=== PATIENT | male | born 1990 | race Caucasian/White ===

== ENCOUNTER 2016-12-14 03:53 | Emergency (ER) | payer MEDICAID ==
[~2016-12-14 03:53] MED LIST: SULF-154 PO
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
[2016-12-14 04:13] VITALS: BP 116/62; PULSE 62; RESP 16; TEMP 98.3; O2SAT 98
[2016-12-14 04:48] LABS: AMPHETAMINE, URINE NEG (NEG); BARBITURATES, URINE NEG (NEG); COCAINE, URINE POS (NEG)
[2016-12-14 04:50] LABS: ANION GAP 10 MEQ/L (5-15); AUTOMATED NEUTROPHIL # 8.4 TH/MM3 (1.8-7.7); BASOPHIL # 0.1 TH/MM3 (0-0.2); BASOPHIL % 0.5 % (0.0-2.0); EOSINOPHIL % 0.2 % (0.0-4.0); HEMATOCRIT 46.6 % (39.0-51.0); HEMO FLAGS DIFF FINAL; LYMPH % 16.5 % (9.0-44.0); LYMPHOCYTE # 1.9 TH/MM3 (1.0-4.8); MEAN CELL VOLUME 96.1 FL (80.0-100.0); MEAN CORPUSCULAR HEMOGLOBIN 33.3 PG (27.0-34.0); MEAN CORPUSCULAR HGB CONC 34.7 % (32.0-36.0); MONO % 9.5 % (0.0-8.0); NEUT % 73.3 % (16.0-70.0); PLATELET COUNT 255 TH/MM3 (150-450); RED BLOOD COUNT 4.85 MIL/MM3 (4.50-5.90); RED CELL DISTRIBUTION WIDTH 12.4 % (11.6-17.2); WHITE BLOOD COUNT 11.4 TH/MM3 (4.0-11.0)
[2016-12-14 04:52] LABS: ACETAMINOPHEN LESS THAN 2.0 MCG/ML (10.0-30.0); ALKALINE PHOSPHATASE 70 U/L (45-117); ALT (GPT) 21 U/L (12-78); AST (GOT) 20 U/L (15-37); BICARBONATE 24.7 MEQ/L (21.0-32.0); BLOOD UREA NITROGEN 17 MG/DL (7-18); CHLORIDE 102 MEQ/L (98-107); GLOMERULAR FILTRATION RATE 77 ML/MIN (>89); POTASSIUM 3.6 MEQ/L (3.5-5.1); SODIUM (NA) 137 MEQ/L (136-145); TOTAL BILIRUBIN ADULT 1.1 MG/DL (0.2-1.0)
[2016-12-14 13:45] VITALS: BP 114/78; PULSE 88; RESP 18; TEMP 98.8; O2SAT 97
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
== END 2016-12-14 18:40 | disposition home or self-care (01) ==
LOC: NEPA 03:53 → NEPJ 18:40
DX: F14.10 Cocaine abuse, uncomplicated (principal)
CPT/HCPCS: 80053; 80307; 85025; 99284

== ENCOUNTER 2017-03-01 04:09 | Emergency (ER) | payer MEDICAID, OTHER ==
[~2017-03-01] VITALS: Ht 185.4 cm; Wt 65.9 kg
[2017-03-01 04:19] VITALS: BP 121/70; PULSE 100; RESP 16; TEMP 98.2; O2SAT 95
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
[2017-03-01 05:17] LABS: BASOPHIL # 0.1 TH/MM3 (0-0.2); EOSINOPHIL # 0.1 TH/MM3 (0-0.4); EOSINOPHIL % 1.1 % (0.0-4.0); HEMATOCRIT 42.9 % (39.0-51.0); HEMO FLAGS DIFF FINAL; LYMPH % 17.6 % (9.0-44.0); LYMPHOCYTE # 1.7 TH/MM3 (1.0-4.8); MEAN CELL VOLUME 96.2 FL (80.0-100.0); MEAN CORPUSCULAR HEMOGLOBIN 33.6 PG (27.0-34.0); MEAN CORPUSCULAR HGB CONC 34.9 % (32.0-36.0); MONO % 8.3 % (0.0-8.0); PLATELET COUNT 253 TH/MM3 (150-450); RED BLOOD COUNT 4.45 MIL/MM3 (4.50-5.90); RED CELL DISTRIBUTION WIDTH 13.3 % (11.6-17.2); WHITE BLOOD COUNT 9.7 TH/MM3 (4.0-11.0)
[2017-03-01 05:37] LABS: ALT (GPT) 21 U/L (12-78); ANION GAP 10 MEQ/L (5-15); AST (GOT) 17 U/L (15-37); BICARBONATE 26.2 MEQ/L (21.0-32.0); BLOOD UREA NITROGEN 16 MG/DL (7-18); CHLORIDE 104 MEQ/L (98-107); GLOMERULAR FILTRATION RATE 93 ML/MIN (>89); POTASSIUM 3.5 MEQ/L (3.5-5.1); SODIUM (NA) 140 MEQ/L (136-145)
[2017-03-01 05:40] LABS: ACETAMINOPHEN LESS THAN 2.0 MCG/ML (10.0-30.0); ALKALINE PHOSPHATASE 80 U/L (45-117); TOTAL BILIRUBIN ADULT 0.6 MG/DL (0.2-1.0)
[2017-03-01 05:45] LABS: AMPHETAMINE, URINE NEG (NEG); BARBITURATES, URINE NEG (NEG); COCAINE, URINE POS (NEG)
[2017-03-01 07:03] VITALS: BP 106/48; PULSE 55; RESP 18; O2SAT 96
[2017-03-01 10:00] VITALS: BP 100/61; PULSE 75; RESP 18; TEMP 97.8; O2SAT 97
[2017-03-01 10:25] VITALS: BP 101/60
[2017-03-01 21:34] VITALS: RESP 17
[2017-03-02 02:00] VITALS: BP 109/70; PULSE 70; RESP 18
[2017-03-02] MEDS ORDERED: NAPROXEN 500 MG TAB PO ONE (03:45)
== END 2017-03-02 03:30 ==
LOC: NEPD 04:09 → NEPJ 03-02 03:30
DX: F19.10 Other psychoactive substance abuse, uncomplicated (principal); F43.21 Adjustment disorder with depressed mood; Z59.0 Homelessness; F43.10 Post-traumatic stress disorder, unspecified; F17.200 Nicotine dependence, unspecified, uncomplicated; F14.10 Cocaine abuse, uncomplicated
CPT/HCPCS: 80053; 80307; 85025; 99285

== ENCOUNTER 2017-07-23 10:02 | Emergency (ER) | payer MEDICAID ==
[~2017-07-23] VITALS: Ht 185.4 cm; Wt 68.0 kg
[2017-07-23 10:04] VITALS: BP 124/66; PULSE 95; RESP 14; TEMP 98; O2SAT 98
--- NOTE | 2017-07-23 10:36 | PD ---
HPI . Left hand injury Chief Complaint: Injury Time Seen by Provider: 10:09 Travel History International Travel<30 days: No Contact w/Intl Traveler<30days: No Traveled to known affect area: No History of Present Illness HPI 26-year-old male patient resents emergency department for evaluation of left hand injury that was sustained last Thursday when he punched a telephone pole. Patient states the fourth and fifth knuckle on his left fist had open wounds from the initial blow to the telephone pole. 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 The grout is stuck into the wound and he has been unable to remove it. At this time the fourth and fifth knuckle is edematous and erythematous. Patient has full extension with the fingers of his left hand but has limited motion with flexion and making a fist of the left hand. Left hand is neurovascularly intact. Cap refill on the fourth and fifth digit is less than 3 seconds. He denies any major medical history. Patient states he is up-to-date on his tetanus. He denies any fevers, chills, chest pain, shortness breath, malaise, abdominal pain, nausea, vomiting, diarrhea. PFSH Past Medical History AAA: No ADD: No ADHD: No Alzheimer's Disease: No Anemia: No Arthritis: No Asthma: No Atrial Fibrillation: No Autoimmune Disease: No Blood Disorders: No Bipolar Disorder: No Anxiety: Yes Depression: Yes Heart Rhythm Problems: No Cancer: No Cardiac Catheterization: No Cardiomyopathy: No Cardiovascular Problems: No Cerebral Palsy: No High Cholesterol: No Chemotherapy: No Chest Pain: No Congestive Heart Failure: No Cirrhosis: No COPD: No Cerebrovascular Accident: No Coronary Artery Disease: No Cystic Fibrosis: No Dementia: No Developmental Delay: No Diabetes: No Dialysis: No Diminished Hearing: No Diverticulitis: No Deep Vein Thrombosis: No Endocrine: No Fibromyalgia: No Gastrointestinal Disorders: No Genetic Disorder: No GERD: No Glaucoma: No (Family history) Gout: No Genitourinary: No Headaches: No Hepatitis: No Hiatal Hernia: No Heparin Induced Thrombocytopen: No Herniated Disk: No Hypertension: No Immune Disorder: No Inguinal Hernia: No Implanted Vascular Access Dvce: No Insomnia: No Kidney Stones: Yes (2009 x2 stones) Musculoskeletal: No Neurologic: No Parkinson's Disease: No Psychiatric: Yes (PTSD) Reproductive: No Respiratory: No Resp. Syncytial Virus (RSV): No Integumentary: No Immunizations Current: No Migraines: No Myocardial Infarction: No Pancreatitis: No Pneumonia: No Radiation Therapy: No Renal Failure: No Schizophrenia: No Seizures: No Shingles: No Sickle Cell Disease: No Sleep Apnea: No Thyroid Disease: No Triglycerides - High: No Ulcer: No Tetanus Vaccination: < 5 Years PNEUMOCCOCAL Vaccine (Year): 2 Past Surgical History Abdominal Aneurysm Repair: No Abdominal Surgery: No AICD: No Appendectomy: No Arteriovenous Shunt: No Cardiac Surgery: No Cholecystectomy: No Coronary Artery Bypass Graft: No Coronary Stent: No Ear Surgery: No Endocrine Surgery: No Eye Surgery: No Genitourinary Surgery: No Gynecologic Surgery: No Insulin Pump: No Joint Replacement: No Mastectomy: No Neurologic Surgery: No Oral Surgery: No Pacemaker: No Prostatectomy: No Thoracic Surgery: No Tonsillectomy: No Tympanostomy Tube: No Valve Replacement: No Other Surgery: Yes (Micro-tendon on right 4th finger) Family History Family Hypercholesterolemia: No Social History Alcohol Use: Yes (occ) Tobacco Use: Yes Substance Use: Yes ([place] and cocaine ) Allergies-Medications (Allergen,Severity, Reaction): Coded Allergies: penicillin G (Unverified Allergy, Severe, Hives, 07/23/17) Reported Meds & Prescriptions Reported Meds & Active Scripts Active No Active Prescriptions or Reported Medications Review of Systems Except as stated in HPI: all other systems reviewed are Neg Physical Exam Narrative GENERAL: Well-nourished, well-developed 26-year-old male patient in no acute distress. Nontoxic appearing. SKIN: 1cm x 1 cm open wound noted the fifth digit knuckle of the left hand with white foreign body debris noted and wound. 0.5 cm 0.5 cm wound to the fourth digit knuckle of the left hand. HEAD: Normocephalic. Atraumatic. NECK: Supple, trachea midline. No JVD or lymphadenopathy. CARDIOVASCULAR: Regular rate and rhythm without murmurs, gallops, or rubs. Radial pulse +2 bilaterally. Cap refill less than 3 seconds. RESPIRATORY: Breath sounds equal bilaterally. No accessory muscle use. GASTROINTESTINAL: Abdomen soft, non-tender, nondistended. MUSCULOSKELETAL: Left lateral hand proximal to the fourth and fifth digit edematous and erythematous. Full range of motion with extension of the left hand digits, limited range of motion with flexion of left hand digits. No obvious deformity, no ecchymosis. Data Data Last Documented VS Vital Signs Date Time Temp Pulse Resp B/P (MAP) Pulse Ox O2 Delivery O2 Flow Rate FiO2 07/23/17 10:13 17 Room Air 07/23/17 10:04 98.0 95 124/66 (85) 98 Orders Orders Hand, Complete ([id number]) (07/23/17 10:11) Ice/Cold Pack (07/23/17 10:11) MDM Medical Decision Making Medical Screen Exam Complete: Yes Emergency Medical Condition: Yes Differential Diagnosis Differential diagnoses include but not limited to hand fracture, left hand contusion, cellulitis, foreign body in wound Narrative Course 26-year-old male presents to emergency room for evaluation of left hand injury that he sustained last Thursday when he punched a telephone pole. Patient has an open wound to the fourth and fifth knuckle on the left digit. 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 Patient has pain on the dorsal aspect of the left hand proximal to the fifth knuckle. The area is edematous and erythematous, no obvious deformity or ecchymosis noted. Patient is up-to-date on his tetanus. X-ray of the left hand ordered and pending. Ice applied to left hand. X-ray of the left hand shows no fracture dislocation. Wound debridement and Polysporin ointment and sterile dressing applied. Patient discharged home with prescription for Bactrim and instructions to follow-up with his primary care return to the emergency Department with any worsening condition. Diagnosis Primary Impression: Hand sprain Qualified Codes: S63.92XA - Sprain of unspecified part of left wrist and hand , initial encounter Additional Impression: Wound cellulitis Referrals: Primary Care Physician Patient Instructions: Acute Wounds (DC), General Instructions, Hand Sprain (ED) Additional Instructions: Please return to emergency department if your symptoms return or worsen. Follow up with your primary care provider. Take medications as prescribed. Take [id number] ibuprofen as needed for pain or swelling. May use ice as needed for pain or swelling. Med/Other Pt SpecificInfo: Prescription(s) given Scripts Sulfamethoxazole-Trimethoprim (Bactrim DS) 800-160 Mg Tab 1 TAB PO BID for Infection for 10 Days, #20 TAB 0 Refills Prov: Aparna Bey 07/23/17 Disposition: 01 DISCHARGE HOME Condition: Stable Aparna Bey Jul 23, 2017 10:36
--- NOTE | 2017-07-23 10:40 | RADRPT ---
EXAM DATE/TIME: 07/23/2017 10:24 [facility] COMPARISON: No previous studies available for comparison. 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 MEDICAL HISTORY : None. SURGICAL HISTORY : None. ENCOUNTER: Initial ACUITY: 4 - 6 days PAIN SCORE: 10/10 LOCATION: Left hand FINDINGS: Three view examination of the left hand demonstrates no soft tissue swelling, dislocation, or fractur e. The carpal bones appear intact. The interphalangeal and metacarpophalangeal joints are intact. Bony mineralization is normal. CONCLUSION: No acute fracture or joint dislocation. Bud Babcock MD on July 23, 2017 at 10:38 Board Certified Radiologist. This report was verified electronically.
[2017-07-23] MEDS ORDERED: BACT800T5 PO (10:59)
[2017-07-23] MEDS ORDERED: IBUPROFEN 800 MG TAB PO ONE (11:15)
== END 2017-07-23 11:33 | disposition home or self-care (01) ==
LOC: NEPD 10:02
DX: S63.92XA Sprain of unspecified part of left wrist and hand, initial encounter (principal); L03.114 Cellulitis of left upper limb; W22.09XA Striking against other stationary object, initial encounter; Z72.0 Tobacco use
CPT/HCPCS: 73130; 99283